=== PATIENT | female | born 1990 | race Caucasian/White ===

== ENCOUNTER 2023-04-13 17:44 | Emergency (ER) | payer MEDICAID ==
[~2023-04-13] VITALS: Ht 160 cm; Wt 89.0 kg
--- NOTE | 2023-04-13 18:07 | ED General ---
General Chief Complaint: Head/Cervical Problems Stated Complaint: HEADACHE Nursing Triage Note: PT STATES LT SIDE HEADACHE Source of Information: Patient History of Present Illness Date Seen by Provider: April 13, 2023 Time Seen by Provider: 17:55 Initial Comments PT ARRIVES VIA POV FROM HOME WITH MALE S.O. C/O LEFT TRIGEMINAL NEURALGIA PAIN STATES SHE WAS DX 8-10 YEARS AGO IN [place], [place] SHE HAD BEEN ON GABAPENTIN IN THE PAST, ALONG WITH STEROIDS. SHE STATES SHE DID NOT LIKE THE WAY THE GABEPENTIN MADE HER FEEL. SHE STATES SHE HAS NOT HAD ANY PROBLEMS FOR ABOUT 6 YEARS A FEW WEEKS AGO, SHE HAD A DENTAL PROCEDURE DONE, AND AFTER THAT SHE HAS HAD RETURN OF SYMPTOMS SHE TOOK 7 DAYS OF PREDNISONE 50 MG--PRESCRIBED 04/01/[address] AZAR. SHE STATES IT WAS DOING FINE UNTIL TODAY--JUST STARTED "OUT OF THE BLUE" WHILE SHE WAS WATCHING A MOVIE, JUST PRIOR TO ARRIVAL. C/O SEVERE PAIN TO LEFT TMJ AREA / LEFT SIDE OF FACE AND AROUND LEFT EAR NO PARESTHESIAS OR MOTOR DEFICITS NO CHANGES IN VISION OR HEARING NO RASH TO AREA NO FEVER OR RECENT ILLNESS HAS NOT TAKEN ANYTHING FOR PAIN AT ANY TIME. LMP--UNKNOWN, SOMETIME IN THE LAST MONTH, S/P BTL. STATES SHE HAS "FIBRO" BUT DOES NOT TAKE ANY MEDICATIONS FOR IT STATES SHE DOES NOT TAKE ANY MEDICATION OF ANY KIND FOR ANYTHING ( PER MED RECONCILIATION, SHE WAS ALSO PRESCRIBED PHENTERMINE ON 04/01/[address] AZAR ) PCP: DR. AZAR IN [place] Allergies and Home Medications Allergies Coded Allergies: No Known Drug Allergies (Unverified , 04/13/23) Patient Home Medication List Home Medication List Reviewed: Yes Prednisone (Prednisone) 5 Mg Tablet, 5 MG PO UD Prescribed by: EZEQUIEL FLOYD on 04/13/231828 Pregabalin (Lyrica) 75 Mg Capsule, 75 MG PO BID Prescribed by: EZEQUIEL FLOYD on 04/13/231828 Review of Systems Review of Systems Constitutional: no symptoms reported EENTM: see HPI Respiratory: no symptoms reported Cardiovascular: no symptoms reported Gastrointestinal: no symptoms reported Genitourinary: no symptoms reported : No Musculoskeletal: see HPI Skin: no symptoms reported Psychiatric/Neurological: See HPI Hematologic/Lymphatic: No Symptoms Reported Immunological/Allergic: no symptoms reported Past Arripam-Fikbxa-Lfkxxs Hx Patient Social History Tobacco Use?: Yes Tobacco type used: Cigarettes Smoking Status: Current Everyday Smoker Substance use?: No Alcohol Use?: No Past Medical History Surgery/Hospitalization HX: FIBROMYALGIA, LISA, 3 C SECTIONS, TUBAL LIGATION Surgeries: Yes (2 SURGERIES ON OVARIES; X 3) Section, Gallbladder, Tubal Ligation Respiratory: No Cardiac: No Neurological: Yes (TRIGEMINAL NEURALGIA) : 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 Genitourinary: No Gastrointestinal: No Musculoskeletal: Yes Fibromyalgia Endocrine: No (OBESITY) HEENT: No Cancer: No Psychosocial: No Integumentary: No Blood Disorders: No Family Medical History SOCIAL HISTORY: -SMOKES 1 PPD -DENIES ETOH USE -DENIES DRUG USE PAST SURGICAL HISTORY: -BILATERAL TUBAL LIGATION -C-SECTIONS X 3 -CHOLECYSTECTOMY -" 2 SURGERIES TO CLEAN OUT MY OVARIES" Physical Exam Vital Signs Vital Signs - First Documented 04/13/23 04/13/23 17:53 18:50 Temp 36.0 Pulse 127 Resp 24 B/P (MAP) 142/117 (125) Pulse Ox 96 O2 Delivery Room Air Capillary Refill : Height, Weight, BMI Height: '" Weight: lbs. oz. kg; 34.00 BMI Method: General Appearance: WD/WN, Obese, Other (CRYING, HOSTILE, VERY DRAMATIC) HEENT: PERRL/EOMI, TMs Normal, Normal ENT Inspection, Pharynx Normal, Moist Mucous Membranes, Other (TENDERNESS TO LEFT TMJ AREA, LEFT SIDE OF FACE, AND LEFT PERIAURICULAR AREA, WITH SOME MILD TRISMUS. NO RASH. NO FACIAL DROOP. NO DECREASED SENSATION) Neck: Full Range of Motion, Normal Inspection, Non Tender, Supple Respiratory: Normal Breath Sounds, No Accessory Muscle Use, No Respiratory Distress Cardiovascular: Regular Rate, Rhythm, No Murmur Extremity: Normal Inspection Neurologic/Psychiatric: Alert, Oriented x3, No Motor/Sensory Deficits, code official II- XII Norm as Tested Skin: Normal Color, Warm/Dry, Tattoos/Piercings (EXTENSIVE TATTOOS) Progress/Results/Core Measures Suspected Sepsis SIRS Temperature: Pulse: 127 Respiratory Rate: 24 Laboratory Tests 04/13/23 17:55: White Blood Count 11.7H Blood Pressure 142 /117 Mean: 125 Laboratory Tests 04/13/23 17:55: Creatinine 0.85, Platelet Count 273, Total Bilirubin 0.3 Results/Orders Lab Results Laboratory Tests Test 04/13/23 17:55 Range/Units White Blood Count 11.7 H 4.3-11.0 10^3/uL Red Blood Count 4.45 3.80-5.11 10^6/uL Hemoglobin 13.1 11.5-16.0 g/dL Hematocrit 38 35-52 % Mean Corpuscular Volume 86 80-99 fL Mean Corpuscular Hemoglobin 29 25-34 pg Mean Corpuscular Hemoglobin Concent 34 32-36 g/dL Red Cell Distribution Width 12.8 10.0-14.5 % Platelet Count 273 130-400 10^3/uL Mean Platelet Volume 10.5 9.0-12.2 fL Immature Granulocyte % (Auto) 0 % Neutrophils (%) (Auto) 54 42-75 % Lymphocytes (%) (Auto) 36 12-44 % Monocytes (%) (Auto) 8 0-12 % Eosinophils (%) (Auto) 2 0-10 % Basophils (%) (Auto) 0 0-10 % Neutrophils # (Auto) 6.3 1.8-7.8 10^3/uL Lymphocytes # (Auto) 4.2 H 1.0-4.0 10^3/uL Monocytes # (Auto) 0.9 0.0-1.0 10^3/uL Eosinophils # (Auto) 0.2 0.0-0.3 10^3/uL Basophils # (Auto) 0.0 0.0-0.1 10^3/uL Immature Granulocyte # (Auto) 0.0 0.0-0.1 10^3/uL Erythrocyte Sedimentation Rate 6 0-20 MM/HR Sodium Level 138 135-145 MMOL/L Potassium Level 3.9 3.6-5.0 MMOL/L Chloride Level 106 98-107 MMOL/L Carbon Dioxide Level 19 L 21-32 MMOL/L Anion Gap 13 5-14 MMOL/L Blood Urea Nitrogen 9 7-18 MG/DL Creatinine 0.85 0.60-1.30 MG/DL Estimat Glomerular Filtration Rate 92 BUN/Creatinine Ratio 11 Glucose Level 149 H 70-105 MG/DL Calcium Level 9.0 8.5-10.1 MG/DL Corrected Calcium 8.8 8.5-10.1 MG/DL Total Bilirubin 0.3 0.1-1.0 MG/DL Aspartate Amino Transf (AST/SGOT) 14 5-34 U/L Alanine Aminotransferase (ALT/SGPT) 13 0-55 U/L Alkaline Phosphatase 39 L 40-136 U/L C-Reactive Protein High Sensitivity 0.06 0.00-0.50 MG/DL Total Protein 7.1 6.4-8.2 GM/DL Albumin 4.2 3.2-4.5 GM/DL Serum Test, Qualitative NEGATIVE NEGATIVE My Orders Orders - EZEQUIEL FLOYD DO Ketorolac Injection (Toradol Injection) (04/13/23 18:15) Pregabalin Capsule (Lyrica Capsule) (04/13/23 18:15) Cbc With Automated Diff (04/13/23 18:03) Comprehensive Metabolic Panel (04/13/23 18:03) Hs C Reactive Protein (04/13/23 18:03) Hcg,Qualitative Serum (04/13/23 18:03) Erythrocyte Sedimentation Rate (04/13/23 18:03) Dexamethasone Injection (Decadron Inje (04/13/23 18:15) Medications Given in ED Current Medications Medications Dose Ordered Sig/Ben Route Start Time Stop Time Status Last Admin Dose Admin Dexamethasone Sodium Phosphate 10 mg ONCE ONCE IV 04/13/23 18:15 04/13/23 18:16 DC 04/13/23 18:37 10 MG Ketorolac Tromethamine 30 mg ONCE ONCE IVP 04/13/23 18:15 04/13/23 18:16 DC 04/13/23 18:37 30 MG Pregabalin 75 mg ONCE ONCE PO 04/13/23 18:15 04/13/23 18:16 DC 04/13/23 18:38 75 MG Vital Signs/I&O 04/13/23 04/13/23 17:53 18:50 Temp 36.0 Pulse 127 72 Resp 24 18 B/P (MAP) 142/117 (125) 120/72 Pulse Ox 96 O2 Delivery Room Air Room Air Capillary Refill : Blood Pressure Mean: 125 Progress Note : Progress Note GIVEN: -TORADOL -DECADRON -LYRICA NO DETERIORATION IN PT'S CONDITION DISCUSSED ANTICIPATED COURSE, SYMPTOMATIC TREATMENT, MEDICATIONS, NEED FOR FOLLOW UP AND RETURN PRECAUTIONS NO PRIOR VISITS HERE. Departure Impression Primary Impression: Left-sided trigeminal neuralgia Disposition: 01 HOME, SELF-CARE Condition: Stable Departure-Patient Inst. Decision time for Depature: 18:30 Referrals: ANN AZAR MD Patient Instructions: Trigeminal neuralgia Add. Discharge Instructions: MOIST HEAT AND/OR COOL COMPRESSES TO THE AREA AT 20 MINUTE INTERVALS SOFT FOODS--AVOID FOODS THAT REQUIRE CHEWING, AVOID CHEWING GUM, ETC. FOLLOW UP WITH DR. AZAR NEXT WEEK FOR FURTHER CARE--CALL IN THE MORNING TO SCHEDULE AN APPOINTMENT All discharge instructions reviewed with patient and/or family. Voiced understanding. Scripts Pregabalin (Lyrica) 75 Mg Capsule 75 MG PO BID, #14 CAP Prov: EZEQUIEL FLOYD DO 04/13/23 Prednisone (Prednisone) 5 Mg Tablet 5 MG PO UD, #78 TAB 12 PILLS DAY 1, THEN DECREASE BY 1 PILL A DAY UNTIL GONE Prov: EZEQUIEL FLOYD DO 04/13/23 EZEQUIEL FLOYD DO April 13, 2023 18:07
[2023-04-13 18:09] LABS: BASOPHILS % (AUTO) 0 % (0-10); EOSINOPHILS # (AUTO) 0.2 10^3/uL (0.0-0.3); EOSINOPHILS % (AUTO) 2 % (0-10); HEMATOCRIT 38 % (35-52); HEMOGLOBIN 13.1 g/dL (11.5-16.0); LYMPHOCYTES # (AUTO) 4.2 10^3/uL (1.0-4.0); LYMPHOCYTES % (AUTO) 36 % (12-44); MEAN CORPUSCULAR HEMOGLOBIN 29 pg (25-34); MEAN CORPUSCULAR HGB CONC 34 g/dL (32-36); MEAN CORPUSCULAR VOLUME 86 fL (80-99); MEAN PLATELET VOLUME 10.5 fL (9.0-12.2); MONOCYTES # (AUTO) 0.9 10^3/uL (0.0-1.0); MONOCYTES % (AUTO) 8 % (0-12); NEUTROPHILS # (AUTO) 6.3 10^3/uL (1.8-7.8); NEUTROPHILS % (AUTO) 54 % (42-75); PLATELET COUNT 273 10^3/uL (130-400); WHITE BLOOD COUNT 11.7 10^3/uL (4.3-11.0)
[2023-04-13 18:13] LABS: ALBUMIN 4.2 GM/DL (3.2-4.5); POTASSIUM 3.9 MMOL/L (3.6-5.0)
[2023-04-13] MEDS ORDERED: PREGABALIN 75 MG (LYRICA) CAP PO ONE (18:15)
[2023-04-13] MEDS ORDERED: KETOROLAC 30 MG/ML VIAL IVP ONE (18:15)
[2023-04-13 18:16] LABS: TOTAL PROTEIN 7.1 GM/DL (6.4-8.2)
[2023-04-13 18:18] LABS: BILIRUBIN,TOTAL 0.3 MG/DL (0.1-1.0)
[2023-04-13 18:20] LABS: CREATININE SERUM 0.85 MG/DL (0.60-1.30)
[2023-04-13 18:26] LABS: ERYTHROCYTE SEDIMENTATION RATE 6 MM/HR (0-20)
[2023-04-13] MEDS ORDERED: PREG75CA PO ×2 (18:29)
[2023-04-13] MEDS ORDERED: PRED5TAB PO (18:29)
[2023-04-13 18:50] VITALS: BP 120/72
== END 2023-04-13 19:10 | disposition home or self-care (01) ==
LOC: ER 17:49
DX: G50.0 Trigeminal neuralgia (principal); E66.9 Obesity, unspecified; F17.210 Nicotine dependence, cigarettes, uncomplicated; Z68.34 Body mass index [BMI] 34.0-34.9, adult; Z79.899 Other long term (current) drug therapy; Z28.310 Unvaccinated for COVID-19
CPT/HCPCS: 36415; 80053; 84703; 85025; 85652; 86141; 99283